=== PATIENT | male | born 1980 ===

== ENCOUNTER 2019-10-18 10:47 | Emergency (ER) | payer OTHER ==
[2019-10-18 11:46] VITALS: BP 130/86
[2019-10-18] MEDS ORDERED: Albuterol/Ipratropium NEB.SOL* Albuterol 2.5 MG/Ipratropium 0.5 MG 3 ML INH ONE (11:52)
--- NOTE | 2019-10-18 11:56 | UC ---
FLU HPI - HPI Summary HPI Summary: 39-year-old male who has been ill for approximately 3 days with congested cough and fever. The illness started with a sore throat. He is a former smoker. He did get a flu shot. No other family members are ill. No history of asthma. - History of Current Complaint Chief Complaint: UCRespiratory Stated Complaint: COUGH DIZZY ACHY Time Seen by Provider: 10/18/19 11:43 Hx Obtained From: Patient Onset/Duration: Gradual Onset Severity Currently: Moderate Severity Initially: Moderate Pain Intensity: 10 Associated Signs & Symptoms: Positive: Fever, Myalgia, Cough, Sore Throat, Nasal Congestion, Headache - Mild headache - Allergy/Home Medications Allergies/Adverse Reactions: Allergies Allergy/AdvReac Type Severity Reaction Status Date / Time No Known Allergies Allergy Verified 10/18/19 11:38 PMH/Surg Hx/FS Hx/Imm Hx Previously Healthy: Yes - Surgical History Surgical History: Yes Surgery Procedure, Year, and Place: ganglion cyst removed on right wrist - Family History Known Family History: Positive: Non-Contributory - Social History Lives: With Family Alcohol Use: Weekly Substance Use Type: None Smoking Status (MU): Never Smoked Tobacco Review of Systems All Other Systems Reviewed And Are Negative: Yes Constitutional: Positive: Fever, Chills ENT: Positive: Sore Throat, Nasal Discharge, Sinus Congestion Respiratory: Positive: Cough - Nonproductive cough. Is Patient Immunocompromised?: No Physical Exam Triage Information Reviewed: Yes Appearance: Well-Appearing, No Pain Distress, Well-Nourished Vital Signs: Initial Vital Signs Temp 97.8 F 10/18/19 11:39 Pulse 88 10/18/19 11:39 Resp 18 10/18/19 11:39 BP 130/86 10/18/19 11:39 Pulse Ox 97 10/18/19 11:39 Vital Signs Reviewed: Yes Eyes: Positive: Conjunctiva Clear ENT: Positive: Hearing grossly normal, Pharyngeal erythema - Mild pharyngeal erythema., Nasal congestion, Nasal drainage - Clear nasal coryza, TMs normal - Right tympanic membrane is normal, left tympanic membrane is injected but with good landmarks and light reflex., Uvula midline Neck: Positive: Supple, Nontender, No Lymphadenopathy Respiratory: Positive: No respiratory distress, No accessory muscle use, Rhonchi , Wheezing - Scattered rhonchi and wheezing throughout, no distress, tight cough. Cardiovascular: Positive: RRR, No Murmur, Pulses Normal, Brisk Capillary Refill Musculoskeletal Exam: Normal Neurological Exam: Normal Psychological Exam: Normal Skin Exam: Normal Flu Course/Dx - Course Course Of Treatment: Chest x-ray:Indication: Cough, fever. 2 views of the chest including dual energy PA views demonstrate no mediastinal shift. Heart is of normal size and configuration. Lung ware are IMPRESSION: No active cardiopulmonary disease is noted. Rapid flu test: Negative Duo neb treatment: The patient felt like he had no change in air movement following the DuoNeb treatment however his lungs were more clear and had better air movement. He still continued to have some mild wheezing on forced expiration. I'm going to treated with an albuterol inhaler 2 puffs every 4 hours as needed for tight cough and wheezing and also started him on tapering prednisone. He is to follow-up with his primary care provider which is [facility] in 2 or 3 days if no improvement. - Differential Dx/Diagnosis Provider Diagnosis: Bronchitis Discharge ED - Sign-Out/Discharge Documenting (check all that apply): Patient Departure All imaging exams completed and their final reports reviewed: No Studies - Discharge Plan Condition: Fair Disposition: HOME Prescriptions: Albuterol HFA INHALER* [Ventolin HFA Inhaler*] 2 puff INH Q4H PRN 5 Days #1 mdi PRN Reason: Wheezing predniSONE 10 mg TAB [Deltasone 10 MG TAB*] 10 mg PO DAILY 12 Days #30 tab Patient Education Materials: Acute Bronchitis (ED) Referrals: Aaron Fowler MD [Primary Care Provider] - Additional Instructions: Increase fluids, go home and rest, [id number] cold medicines as directed. Use her albuterol inhaler 2 puffs every 4-6 hours as needed for tight cough or wheezing. Take the prednisone with food. Definite follow-up with your primary care provider if no improvement in 3 or 4 days or if you start running a fever. - Billing Disposition and Condition Condition: FAIR Disposition: Home
[2019-10-18 12:19] LABS: Influenza A Molecular NEGATIVE (Negative); Influenza B Molecular NEGATIVE (Negative)
== END 2019-10-18 12:57 | disposition home or self-care (01) ==
LOC: UCCORT 10:47
DX: J40 Bronchitis, not specified as acute or chronic (principal); Z87.891 Personal history of nicotine dependence
CPT/HCPCS: 71046; 99202; A9270-GY; G0463